=== PATIENT | male | born 1990 | race African-American/Black ===

== ENCOUNTER 2024-01-21 16:03 | Emergency (ER) | payer MEDICAID ==
[~2024-01-21] VITALS: Ht 180.3 cm; Wt 72.7 kg
[2024-01-21 16:05] VITALS: TEMP 97.8
[2024-01-21] MEDS: DOCUSATE SODIUM 100 MG CAPSULE PO ONE (16:49)
[2024-01-21] MEDS ORDERED: DOCU-385 PO (17:02)
[2024-01-21 17:25] VITALS: BP 141/79; PULSE 77; RESP 16
== END 2024-01-21 17:59 | disposition home or self-care (01) ==
LOC: EMS 16:09
DX: K59.00 Constipation, unspecified (principal); E03.9 Hypothyroidism, unspecified
CPT/HCPCS: 99282; Z7502; Z7610